=== PATIENT | female | born 1960 | race Caucasian/White ===

== ENCOUNTER 2020-08-05 04:54 | Outpatient (REF) | payer OTHER, SELFPAY ==
[2020-08-05 05:04] LABS: Hematocrit 27.9 % (37-47); Hemoglobin 9.1 g/dl (12.0-16.0); Mean Corpuscular HGB Conc 32.6 g/dl (31.0-35.0); Mean Corpuscular Hemoglobin 30.8 pg (27.0-33.0); Mean Corpuscular Volume 94.6 fL (80-98); Mean Platelet Volume 9.9 fL (9.4-12.3); Platelet Count 296 X10*3/uL (160-400); Red Blood Count 2.95 X10*6/uL (4.20-5.50); Red Cell Distribution Width 14.2 % (11.0-16.0); White Blood Count 8.9 X10*3/uL (4.8-10.8)
[2020-08-05 05:49] LABS: Alanine Aminotransferase 11 U/L (0-31); Albumin Level 2.8 g/dL (3.5-5.0); Alkaline Phosphatase 187 U/L (39-117); Anion Gap 14 (12-20); Aspartate Amino Transferase 27 U/L (5-31); Bilirubin Total 0.4 mg/dL (0.0-1.0); Blood Urea Nitrogen 25 mg/dL (9-16); Calcium 8.1 mg/dL (8.4-10.2); Carbon Dioxide 28 mmol/L (22-29); Chloride 96 mmol/L (96-108); Estimated Glomerular Filt Rate 15; Glucose Random 90 mg/dL (60-115); Potassium 3.2 mmol/L (3.3-5.1); Sodium 135 mmol/L (135-145); Total Protein 5.3 g/dL (6.5-8.0)
== END 2020-08-05 04:55 | disposition home or self-care (01) ==
LOC: HO.MMNH1L 04:54
PROVIDERS: Visit Provider Family Medicine
DX: J44.9 Chronic obstructive pulmonary disease, unspecified (principal); I63.9 Cerebral infarction, unspecified; Z99.2 Dependence on renal dialysis
CPT/HCPCS: 36415; 80053; 85027

== ENCOUNTER 2020-08-09 | Outpatient (REF) | payer OTHER, SELFPAY ==
[2020-08-09 07:07] LABS: Hematocrit 28.3 % (37-47); Mean Corpuscular HGB Conc 31.8 g/dl (31.0-35.0); Mean Corpuscular Hemoglobin 30.3 pg (27.0-33.0); Mean Corpuscular Volume 95.3 fL (80-98); Mean Platelet Volume 10.1 fL (9.4-12.3); Platelet Count 255 X10*3/uL (160-400); Red Blood Count 2.97 X10*6/uL (4.20-5.50); Red Cell Distribution Width 14.1 % (11.0-16.0); White Blood Count 8.7 X10*3/uL (4.8-10.8)
[2020-08-09 07:28] LABS: Anion Gap 12 (12-20); Blood Urea Nitrogen 29 mg/dL (9-16); Calcium 8.1 mg/dL (8.4-10.2); Carbon Dioxide 28 mmol/L (22-29); Chloride 98 mmol/L (96-108); Estimated Glomerular Filt Rate 13; Glucose Random 238 mg/dL (60-115); Potassium 3.3 mmol/L (3.3-5.1); Sodium 135 mmol/L (135-145)
== END 2020-08-09 00:01 | disposition home or self-care (01) ==
LOC: HO.MMNH1L
PROVIDERS: Visit Provider Family Medicine
DX: J44.9 Chronic obstructive pulmonary disease, unspecified (principal); Z86.73 Personal history of transient ischemic attack (TIA), and cerebral infarction without residual deficits; Z99.2 Dependence on renal dialysis
CPT/HCPCS: 36415; 80048; 85027

== ENCOUNTER 2020-08-16 07:02 | Outpatient (REF) | payer OTHER, SELFPAY ==
[2020-08-16 07:09] LABS: Hematocrit 29.2 % (37-47); Hemoglobin 9.3 g/dl (12.0-16.0); Mean Corpuscular HGB Conc 31.8 g/dl (31.0-35.0); Mean Corpuscular Hemoglobin 30.8 pg (27.0-33.0); Mean Corpuscular Volume 96.7 fL (80-98); Mean Platelet Volume 10.6 fL (9.4-12.3); Platelet Count 256 X10*3/uL (160-400); Red Blood Count 3.02 X10*6/uL (4.20-5.50); Red Cell Distribution Width 14.6 % (11.0-16.0); White Blood Count 9.3 X10*3/uL (4.8-10.8)
[2020-08-16 07:33] LABS: Anion Gap 15 (12-20); Blood Urea Nitrogen 37 mg/dL (9-16); Calcium 8.7 mg/dL (8.4-10.2); Carbon Dioxide 26 mmol/L (22-29); Chloride 100 mmol/L (96-108); Estimated Glomerular Filt Rate 12; Glucose Random 137 mg/dL (60-115); Potassium 4.1 mmol/L (3.3-5.1); Sodium 137 mmol/L (135-145)
== END 2020-08-16 07:03 | disposition home or self-care (01) ==
LOC: HO.MMNH1L 07:02
PROVIDERS: Visit Provider Family Medicine
DX: J44.9 Chronic obstructive pulmonary disease, unspecified (principal); I63.9 Cerebral infarction, unspecified; Z99.2 Dependence on renal dialysis
CPT/HCPCS: 36415; 80048; 85027

== ENCOUNTER 2020-08-23 00:26 | Outpatient (REF) | payer OTHER, SELFPAY ==
[2020-08-23 06:06] LABS: Hematocrit 29.9 % (37-47); Hemoglobin 9.5 g/dl (12.0-16.0); Mean Corpuscular HGB Conc 31.8 g/dl (31.0-35.0); Mean Corpuscular Hemoglobin 30.5 pg (27.0-33.0); Mean Corpuscular Volume 96.1 fL (80-98); Mean Platelet Volume 10.4 fL (9.4-12.3); Platelet Count 210 X10*3/uL (160-400); Red Blood Count 3.11 X10*6/uL (4.20-5.50); Red Cell Distribution Width 14.6 % (11.0-16.0)
[2020-08-23 06:41] LABS: Anion Gap 11 (12-20); Blood Urea Nitrogen 36 mg/dL (9-16); Carbon Dioxide 26 mmol/L (22-29); Chloride 104 mmol/L (96-108); Estimated Glomerular Filt Rate 12; Glucose Random 110 mg/dL (60-115); Sodium 137 mmol/L (135-145)
== END 2020-08-23 00:27 | disposition home or self-care (01) ==
LOC: HO.MMNH1L 00:26
PROVIDERS: Visit Provider Family Medicine
DX: I63.9 Cerebral infarction, unspecified (principal); J44.9 Chronic obstructive pulmonary disease, unspecified; N18.6 End stage renal disease; Z99.2 Dependence on renal dialysis
CPT/HCPCS: 36415; 80048; 85027

== ENCOUNTER 2020-08-30 00:08 | Outpatient (REF) | payer OTHER, SELFPAY ==
[2020-08-30 07:01] LABS: Hematocrit 30.8 % (37-47); Hemoglobin 9.9 g/dl (12.0-16.0); Mean Corpuscular HGB Conc 32.1 g/dl (31.0-35.0); Mean Corpuscular Hemoglobin 30.7 pg (27.0-33.0); Mean Corpuscular Volume 95.4 fL (80-98); Mean Platelet Volume 10.4 fL (9.4-12.3); Platelet Count 231 X10*3/uL (160-400); Red Blood Count 3.23 X10*6/uL (4.20-5.50); Red Cell Distribution Width 14.1 % (11.0-16.0); White Blood Count 7.5 X10*3/uL (4.8-10.8)
[2020-08-30 07:34] LABS: Anion Gap 14 (12-20); Blood Urea Nitrogen 35 mg/dL (9-16); Calcium 8.3 mg/dL (8.4-10.2); Carbon Dioxide 26 mmol/L (22-29); Chloride 102 mmol/L (96-108); Estimated Glomerular Filt Rate 11; Glucose Random 137 mg/dL (60-115); Potassium 3.5 mmol/L (3.3-5.1); Sodium 138 mmol/L (135-145)
== END 2020-08-30 00:09 | disposition home or self-care (01) ==
LOC: HO.MMNH1L 00:08
PROVIDERS: Visit Provider Family Medicine
DX: I63.9 Cerebral infarction, unspecified (principal); J44.9 Chronic obstructive pulmonary disease, unspecified; N18.6 End stage renal disease; Z99.2 Dependence on renal dialysis
CPT/HCPCS: 36415; 80048; 85027

== ENCOUNTER 2021-04-11 09:07 | Day surgery (SDC) | payer OTHER, SELFPAY ==
--- NOTE | 2021-04-07 16:36 | MHC.SHP ---
Pre-Procedural Eval Section A Date of Service: 04/07/21 The patient is an INPATIENT: No Changes since office visit: No Cold of Flu in the past 2 weeks, No New Medical Problems, No Changes in Medication and No Patient answered all questions The History & Physical has been completed within 30 days and I have reviewed it.: Yes Section B Chief Complaint: cataract right eye Allergies: Allergies Allergy/AdvReac Type Severity Reaction Status Date / Time aspirin AdvReac Unknown UPSET Unverified 08/03/20 15:58 STOMACH latex [Latex] AdvReac Unknown yeast Unverified 08/03/20 15:58 infection From Monistat 3 AdvReac Unknown ITCHING/BUR Uncoded 08/03/20 15:58 NERY Plan Diagnosis/Plan: Unchanged I have reviewed the history and physical and performed a pertinent physical examination on my patient. No changes have occurred unless specified.
[2021-04-08 10:58] VITALS: BMI 34.3
[2021-04-08 11:48] VITALS: BMI 34.3
--- NOTE | 2021-04-08 13:52 | P.CONAN_ITS ---
Documented by User: Janis Preciado NP 04/08/21 13:57 HPI - Anesthesia Eval Consult details Narrative: 61yo F for Right Cataract Extraction IOL Insertion PCP cleared No previous cataract on record ESRD on HD [facility] resident AV fistula - ? location O2 dependant @ 2L [facility] Past Medical History Medical History (Updated 04/08/21 @ 11:34 by Lali Richard RN) Anxiety AV fistula Bipolar II disorder CHF (congestive heart failure) Contracture, left elbow Contracture, left hand Contracture, left wrist COPD (chronic obstructive pulmonary disease) Cramp and spasm CVA (cerebral vascular accident) Dependence on renal dialysis Depression Diabetes End stage renal disease GERD (gastroesophageal reflux disease) HTN (hypertension) MDD (major depressive disorder) Oxygen dependent Personal history of COVID-19 RLS (restless legs syndrome) Sleep apnea Transient alteration of awareness Unspecified sequelae of cerebral infarction Surgical History Surgical History (Updated 08/03/20 @ 16:01 by Gris Patel RN) Hx of section Hx of cholecystectomy Hx of hysterectomy Social History Social History Are you a primary child care center administrator to a significant other at home: No Patient Tobacco Use Status: Never used Tobacco Are you DNR?: No Advance Directives: Yes Advance Directives Information Provided: No Advance Directives on File: Yes Advance Directives Date on File: 10/05/20 Meds Allergies Allergy/AdvReac Type Severity Reaction Status Date / Time grass pollen Allergy Unknown Verified 04/08/21 10:57 haloperidol [From Haldol] Allergy Unknown Verified 04/08/21 10:57 latex [Latex] AdvReac Unknown yeast Verified 04/11/21 12:13 infection From Monistat 3 AdvReac Unknown ITCHING/BUR Uncoded 08/03/20 15:58 NERY Home Medications Medication Instructions Recorded Confirmed Last Taken Type acetaminophen 325 mg tablet 2 tab PO Q6H PRN 04/08/21 04/08/21 Unknown History albuterol sulfate 90 mcg/actuation 2 puff INHALATION Q4H PRN 04/08/21 04/08/21 Unknown History aerosol inhaler atorvastatin 40 mg tablet 1 tab PO BEDTIME 04/08/21 04/08/21 Unknown History bisacodyl 10 mg rectal suppository 10 mg MD DAILY PRN 04/08/21 04/08/21 Unknown History (Dulcolax (bisacodyl)) cetirizine 10 mg tablet 5 mg PO DAILY PRN 04/08/21 04/08/21 Unknown History escitalopram oxalate 20 mg tablet 1 tab PO DAILY 04/08/21 04/08/21 Unknown History fluticasone propionate 50 spray INTRANASAL 04/08/21 Unknown History mcg/actuation nasal spray,suspension furosemide 40 mg tablet 40 mg PO 4XW 04/08/21 04/08/21 Unknown History gabapentin 100 mg capsule 1 cap PO TID 04/08/21 04/08/21 Unknown History insulin lispro 100 unit/mL SUBCUT 04/08/21 Unknown History subcutaneous solution (Humalog U-100 Insulin) isosorbide mononitrate 30 mg 1 tab PO DAILY 04/08/21 04/08/21 Unknown History tablet,extended release 24 hr lactulose 10 gram/15 mL oral 30 ml PO DAILY PRN 04/08/21 04/08/21 Unknown History solution (Enulose) lamotrigine 25 mg tablet 25 mg PO DAILY 04/08/21 04/08/21 Unknown History melatonin 5 mg tablet 5 mg PO BEDTIME PRN 04/08/21 04/08/21 Unknown History mirtazapine 7.5 mg tablet 7.5 mg PO BEDTIME 04/08/21 04/08/21 Unknown History omeprazole 20 mg capsule,delayed 1 cap PO DAILY 04/08/21 04/08/21 Unknown History release pramipexole 0.5 mg tablet (Mirapex) 0.5 mg PO QPM 04/08/21 04/08/21 Unknown History sennosides 8.6 mg-docusate sodium PO 04/08/21 04/08/21 Unknown History 50 mg capsule (Senna Plus) sevelamer carbonate 800 mg tablet 1 tab PO TID 04/08/21 04/08/21 Unknown History sitagliptin 25 mg tablet 25 mg PO DAILY 04/08/21 04/08/21 Unknown History trazodone 50 mg tablet 0.5 tab PO BEDTIME PRN 04/08/21 04/08/21 Unknown History umeclidinium 62.5 mcg/actuation 1 puff INHALATION DAILY 04/08/21 04/08/21 Unknown History blister powder for inhalation (Incruse Ellipta) Exam Exam Date and Time: April 08, 2021 1352 Height,Weight and Vital Signs: Height 5 ft 1 in Weight 82.372 kg Assessment and Plan Assessment Anesthesia Assessment: Chart Reviewed Documented by User: Jennie Fortune MD 04/11/21 12:56 [facility] Past Medical History Medical History (Updated 04/08/21 @ 11:34 by Lali Richard, RACHANA) Anxiety AV fistula Bipolar II disorder CHF (congestive heart failure) Contracture, left elbow Contracture, left hand Contracture, left wrist COPD (chronic obstructive pulmonary disease) Cramp and spasm CVA (cerebral vascular accident) Dependence on renal dialysis Depression Diabetes End stage renal disease GERD (gastroesophageal reflux disease) HTN (hypertension) MDD (major depressive disorder) Oxygen dependent Personal history of COVID-19 RLS (restless legs syndrome) Sleep apnea Transient alteration of awareness Unspecified sequelae of cerebral infarction Family History Family history of problems with anesthesia: No Surgical History Surgical History (Updated 08/03/20 @ 16:01 by Gris Patel RN) Hx of section Hx of cholecystectomy Hx of hysterectomy History of Problems with Anesthesia: No Social History Social History Are you a primary child care center administrator to a significant other at home: No Patient Tobacco Use Status: Never used Tobacco Are you DNR?: No Advance Directives: Yes Advance Directives Information Provided: No Advance Directives on File: Yes Advance Directives Date on File: 10/05/20 Meds Allergies Allergy/AdvReac Type Severity Reaction Status Date / Time grass pollen Allergy Unknown Verified 04/08/21 10:57 haloperidol [From Haldol] Allergy Unknown Verified 04/08/21 10:57 latex [Latex] AdvReac Unknown yeast Verified 04/11/21 12:13 infection From Monistat 3 AdvReac Unknown ITCHING/BUR Uncoded 08/03/20 15:58 NERY Home Medications Medication Instructions Recorded Confirmed Last Taken Type acetaminophen 325 mg tablet 2 tab PO Q6H PRN 04/08/21 04/08/21 Unknown History albuterol sulfate 90 mcg/actuation 2 puff INHALATION Q4H PRN 04/08/21 04/08/21 Unknown History aerosol inhaler atorvastatin 40 mg tablet 1 tab PO BEDTIME 04/08/21 04/08/21 Unknown History bisacodyl 10 mg rectal suppository 10 mg MD DAILY PRN 04/08/21 04/08/21 Unknown History (Dulcolax (bisacodyl)) cetirizine 10 mg tablet 5 mg PO DAILY PRN 04/08/21 04/08/21 Unknown History escitalopram oxalate 20 mg tablet 1 tab PO DAILY 04/08/21 04/08/21 Unknown History fluticasone propionate 50 spray INTRANASAL 04/08/21 Unknown History mcg/actuation nasal spray,suspension furosemide 40 mg tablet 40 mg PO 4XW 04/08/21 04/08/21 Unknown History gabapentin 100 mg capsule 1 cap PO TID 04/08/21 04/08/21 Unknown History insulin lispro 100 unit/mL SUBCUT 04/08/21 Unknown History subcutaneous solution (Humalog U-100 Insulin) isosorbide mononitrate 30 mg 1 tab PO DAILY 04/08/21 04/08/21 Unknown History tablet,extended release 24 hr lactulose 10 gram/15 mL oral 30 ml PO DAILY PRN 04/08/21 04/08/21 Unknown Hist ory solution (Enulose) lamotrigine 25 mg tablet 25 mg PO DAILY 04/08/21 04/08/21 Unknown History melatonin 5 mg tablet 5 mg PO BEDTIME PRN 04/08/21 04/08/21 Unknown History mirtazapine 7.5 mg tablet 7.5 mg PO BEDTIME 04/08/21 04/08/21 Unknown History omeprazole 20 mg capsule,delayed 1 cap PO DAILY 04/08/21 04/08/21 Unknown History release pramipexole 0.5 mg tablet (Mirapex) 0.5 mg PO QPM 04/08/21 04/08/21 Unknown History sennosides 8.6 mg-docusate sodium PO 04/08/21 04/08/21 Unknown History 50 mg capsule (Senna Plus) sevelamer carbonate 800 mg tablet 1 tab PO TID 04/08/21 04/08/21 Unknown History sitagliptin 25 mg tablet 25 mg PO DAILY 04/08/21 04/08/21 Unknown History trazodone 50 mg tablet 0.5 tab PO BEDTIME PRN 04/08/21 04/08/21 Unknown History umeclidinium 62.5 mcg/actuation 1 puff INHALATION DAILY 04/08/21 04/08/21 Unknown History blister powder for inhalation (Incruse Ellipta) Exam Height,Weight and Vital Signs: Height 5 ft 1 in Weight 82.372 kg Vital Signs Temp Pulse Resp BP Pulse Ox 04/11/21 12:10 97.4 F 71 20 117/101 H 98 Pertinent Lab Results Pertinent Lab Results: Lab Results 04/11/21 04/11/21 Range/Units 09:47 10:17 Sodium 138 (135-145) mmol/L Potassium 3.1 L (3.3-5.1) mmol/L Chloride 98 (96-108) mmol/L Carbon Dioxide 31 H (22-29) mmol/L Anion Gap 12 (12-20) POC Glucose 135 H (60-115) mg/dL Airway Mallampati Class: II TM Dist: >3cm Neck ROM: Limited (Achy with prolonged extension) Denture: Upper Loose/Missing/Broken Teeth: Yes (Many teeth missing in bottom) Heart: Irregular Lungs: CTAB Assessment and Plan Assessment Anesthesia Assessment: Anesthesia Plan Discussed Final Anesthetic Review Family History of Problems with Anesthesia: No History of Problems with Anesthesia: No NPO: Yes ASA Class: IV Final Preanesthetic Review: No Changes in Pt Med Stat, Meds/Allgs Chart Reviewed, Consent Obtained/Reviewed and Anes Risks/Benef Reviewed Patient Risk: High Procedure Risk: Low Assessment/Block/Sedation in SS: Assess/Block/Sedation-SS Anesthetic Plan Anesthetic Plan: MAC: Disposition: Standard PACU
[2021-04-11 10:13] LABS: Anion Gap 12 (12-20); Carbon Dioxide 31 mmol/L (22-29); Chloride 98 mmol/L (96-108); Potassium 3.1 mmol/L (3.3-5.1); Sodium 138 mmol/L (135-145)
[2021-04-11 10:22] LABS: Glucose, Whole Blood 135 mg/dL (60-115)
--- NOTE | 2021-04-11 10:40 | PC.NURSE ---
repositioned two assist. hob 90 45 degrees. alert and awake. aware of plan of care.
--- NOTE | 2021-04-11 10:51 | PC.NURSE ---
md bolanos aware of potassium 3.1
[2021-04-11 12:10] VITALS: BP 117/101; PULSE 71; RESP 20; TEMP 36.3; O2SAT 98
[2021-04-11] MEDS: Tetracaine HCl/PF 0.5% Oph Sol 4 ML DROPS 1 DROP EYE-RIGHT (12:14)
[2021-04-11] MEDS: Tropicamide 1 % Ophth Sol 3 ML BTL 1 DROP EYE-RIGHT ×3 (12:15→12:27)
[2021-04-11] MEDS: Phenylephrine HCL 2.5% Oph SoL 2 ML BOTTLE 1 DROP EYE-RIGHT ×3 (12:20→12:29)
--- NOTE | 2021-04-11 12:54 | HO.PNOPHT ---
Ophthalmology Procedure Procedure Date of Service: 04/11/21 Ophthalmology Viscoelastic: Healdonald Solizt Dual Pack Pro Ophthalmology Lenses: TECNIS [id number] (22.5) Procedure Notes: PREOPERATIVE DIAGNOSIS: Decreased visual acuity right eye secondary to cataract POSTOPERATIVE DIAGNOSIS: Same PROCEDURE: Right cataract extraction with intraocular lens insertion SURGEON: Jem Villatoro M.D. ANESTHESIA: Topical/MAC ESTIMATED BLOOD LOSS: None COMPLICATIONS: None After obtaining informed consent, the patient was brought to the operating room suite and placed in the supine position. After adequate sedation per anesthesia, topical drops of Tetracaine were given to the right eye. The eye was then prepped and draped in the usual sterile fashion. The operating room microscope was then positioned over the operative eye and a lid speculum placed. A paracentesis was created. Viscoelastic was then instilled into the anterior chamber. A three plane incision was then created temporally, utilizing a 2.85 mm keratome. Capsulotomy forceps were then utilized to create a circular tear capsulotomy. Hydrodissection and hydrodelineation were carried out until adequate mobilization of the nucleus occurred. Phacoemulsification was then utilized to remove the dense central nucleus followed by removal of the cortical material utilizing the automated aspiration irrigation unit. Viscoelastic was instilled into the posterior capsular bag followed by placement of a posterior chamber intraocular lens without difficulty. The residual Viscoelastic was then removed utilizing the automated IA machine. The wound was checked and found to be watertight. The patient tolerated the procedure well and the lid speculum was removed. Intracameral injection of Vigamox 0.1 mL followed by a subtenon injection of Kenalog-40 0.2 mL were administered. The patient will be seen in the a.m.
[2021-04-11 13:28] VITALS: BP 110/61; PULSE 76; RESP 16; TEMP 36.5; O2SAT 95
== END 2021-04-11 13:48 | disposition home or self-care (01) ==
PROVIDERS: Nurse Practitioner; PCP Hospitalist; Visit Provider Ophthalmology
PROC: (CPT 66985; principal; 2021-04-11 13:10)
DX: H25.11 Age-related nuclear cataract, right eye (principal); H54.7 Unspecified visual loss; I10 Essential (primary) hypertension; E11.9 Type 2 diabetes mellitus without complications; Z79.4 Long term (current) use of insulin; Z79.899 Other long term (current) drug therapy; Z99.81 Dependence on supplemental oxygen; Z88.8 Allergy status to other drugs, medicaments and biological substances; Z91.040 Latex allergy status; Z86.73 Personal history of transient ischemic attack (TIA), and cerebral infarction without residual deficits; Z86.79 Personal history of other diseases of the circulatory system; Z87.891 Personal history of nicotine dependence
CPT/HCPCS: 66984; 36415; 80051; 82947; J2405; J3010; J3300; V2632